=== PATIENT | female | born 1985 | race Caucasian/White ===

== ENCOUNTER 2023-09-24 20:20 | Emergency (ER) | payer OTHER ==
[~2023-09-24] VITALS: Ht 157.5 cm; Wt 68.2 kg
[2023-09-24 20:42] VITALS: BP 170/94
[2023-09-24 21:23] LABS: BASO # 0.02 K/mm3 (0.02-0.10); HEMATOCRIT 39.5 % (37.0-47.0); HEMOGLOBIN 13.5 g/dL (12.5-16.0); LYMPH# 2.17 K/mm3 (1.50-4.00); MEAN CELL VOLUME 89 fl (78-100); MEAN CORPUSCULAR HEMOGLOBIN 31 pg (27-31); MEAN CORPUSCULAR HGB CONC 34 g/dL (33-37); MEAN PLATELET VOLUME 9.7 fl (7.4-10.4); MONO # 0.89 K/mm3 (0.20-0.80); NEU # 6.36 K/mm3 (1.40-6.50); PLATELET COUNT 266 K/mm3 (130-400); RED BLOOD COUNT 4.42 M/mm3 (4.10-5.30); RED CELL DISTRIBUTION WIDTH 12.5 % (11.5-14.5); WHITE BLOOD COUNT 9.6 K/mm3 (4.8-10.8)
== END 2023-09-24 22:00 | disposition home or self-care (01) ==
LOC: ED 20:20
PROVIDERS: Family Medicine
DX: M77.8 Other enthesopathies, not elsewhere classified (principal)

== ENCOUNTER → 2024-11-23 | Outpatient (CLI) | payer OTHER | LOC: RAD 14:26 | DX: R91.8 Other nonspecific abnormal finding of lung field (principal) ==